=== PATIENT | male | born 1965 | race Caucasian/White ===

== ENCOUNTER → 2017-10-24 10:17 | Outpatient (POV) | payer MEDICAID, SELFPAY | PROVIDERS: PCP Nurse Practitioner Family; Visit Provider Otolaryngology | DX: Z00.00 Encounter for general adult medical examination without abnormal findings (principal) ==

== ENCOUNTER 2017-11-06 12:50 | Outpatient (RCR) | payer MEDICAID, SELFPAY | END 2017-11-06 16:00 | disposition home or self-care (01) | LOC: PT 12:50 | PROVIDERS: Family Provider Nurse Practitioner Family; PCP Nurse Practitioner Family; Visit Provider Nurse Practitioner Family | DX: R20.2 Paresthesia of skin (principal); M54.2 Cervicalgia ==

== ENCOUNTER 2019-12-27 14:34 | Emergency (ER) | payer MEDICAID, SELFPAY ==
--- NOTE | 2019-12-27 15:06 | ECG_ITS ---
APPROVED REPORT Exam: Resting ECG HR:72 bpm ECG Measurements Heart Rate 72 AXES MS 156 P 56 QRSd 110 QRS -4 QT 404 T 209 QTc 442 <Conclusion> Normal sinus rhythm ST & T wave abnormality, consider inferolateral ischemia Abnormal ECG Electronically signed by : Abner Mckeon, 12/27/2019 16:08:59
[2019-12-27 15:07] VITALS: BP 107/71; PULSE 77; RESP 17; TEMP 37; O2SAT 96; BMI 20.7
--- NOTE | 2019-12-27 15:10 | XR_ITS ---
PROCEDURE: XR CHEST 2V CLINICAL HISTORY: CHEST PAIN Chest pain, COPD, smoker COMPARISON: [facility] CT CHEST W/O CONTRAST from 07/08/2014 CXR CHEST(2 VIEWS-NOT PORTABLE) from 02/20/2015 FINDINGS: Normal heart size. There is a an RV pacemaker present from left subclavian approach. There is a 13 mm nodule in the left upper lobe which appears slightly more prominent from 02/20/2015. Chest CT may confirm as there is an old chest CT also available for comparison. Stable nodules present in the right midlung. No lobar consolidation or collapse. IMPRESSION: Bilateral pulmonary nodules. Left upper lobe nodule may be slightly more prominent but could be projectional in nature. CT may confirm Dictated by: Romain Flores MD 12/27/2019 16:16 Electronically signed by Romain Flores MD in [place] 12/27/2019 16:16
[2019-12-27 15:25] LABS: Basophils # 0.1 K/mm3 (0-0.2); Eosinophils # 0.4 K/mm3 (0.0-0.4); Lymphocytes # 2.6 K/mm3 (0.7-4.5); Mean Corpuscular HGB Conc 33.6 g/dL (31.8-35.4); Mean Corpuscular Hemoglobin 32.4 pg (27.0-31.2); Mean Corpuscular Volume 96.5 fl (80-94); Mean Platelet Volume 8.2 fl (7.4-10.4); Monocytes # 0.6 K/mm3 (0.1-1.0); Monocytes % 5.7 % (1.7-9.3); Neutrophils # 6.2 K/mm3 (1.8-7.8); Neutrophils % 63.2 % (37.0-80.0); Platelet Count 225 K/mm3 (142-424); Red Blood Count 5.91 M/mm3 (4.60-6.20); Red Cell Distribution Width 13.4 % (11.5-17.5); White Blood Count 9.9 K/mm3 (4.8-10.8)
[2019-12-27 15:31] LABS: Hemoglobin 19.2 g/dL (14.1-18.0)
[2019-12-27 15:33] LABS: Alanine Aminotransferase 45 U/L (12-78); Albumin Level 4.4 g/dl (3.5-5.0); Alkaline Phosphatase 75 U/L (38-126); Anion Gap 11.7 mEq/L (5-15); Aspartate Amino Transferase 40 U/L (17-59); Bilirubin,Direct 0.1 mg/dl (0.0-0.4); Bilirubin,Indirect 1.1 mg/dL (0.0-0.9); Bilirubin,Total 1.2 mg/dl (0.2-1.3); Blood Urea Nitrogen 7 mg/dl (9-20); Calcium 9.4 mg/dl (8.4-10.2); Carbon Dioxide 26 mmol/L (22.0-30.0); Chloride 99 mmol/L (98-107); Creatinine Clearance Estimated 75 mL/min (50-200); Estimated Glomerular Filt Rate 78 ml/min (>60); GFR (African American) 94 ML/MIN (>60); Glucose 101 mg/dl (74-100); Potassium 3.7 mmoL/L (3.5-5.1); Sodium 133 mmol/L (136-145); Total Protein,Serum 7.5 g/dl (6.3-8.2)
[2019-12-27 15:47] LABS: Troponin I < 0.01 ng/ml (0.00-0.034)
--- NOTE | 2019-12-27 17:02 | HMH.EDGENADL ---
ED Disposition Clinical Impression: Chest pain Qualifiers: Chest pain type: unspecified Qualified Code(s): R07.9 - Chest pain, unspecified Shingles Qualifiers: Herpes zoster complications: without complications Qualified Code(s): B02.9 - Zoster without complications Disposition: Home, Self-Care Condition on Discharge: Good Additional Instructions: After reviewing your labs and radiology we are discharging you home at this time. There is concern that your chest pain may be induced due to shingles. For this we have prescribed oral acyclovir. Please take as prescribed. Recommend that you follow-up with your primary care physician in the next 3 to 5 days for further evaluation. Should you worsen please return to the emergency department. Prescriptions: Acyclovir [Acyclovir 800mg tab] 800 mg PO 5XDAY 5 Days #25 tab Transmission Status: Pending to [id number] Referrals: Annel Carballo [Primary Care Provider] - - Critical Care Critical Care Time: No Attestation: On 12/27/19, the high probability of a clinically significant, sudden or life threatening deterioration of the following system(s) required my full and direct attention, intervention and personal management. The time I documented below is in addition to time spent performing reported procedures but includes the following listed in this critical care notation. Medical Decision Making - Abraham Inquiry Pt receiving controlled substance: No Abraham was queried for this patient: No Vital Signs: 12/27/19 15:07 Temperature 98.6 F Temperature Source Oral Pulse Rate [Right Radial] 77 Respiratory Rate 17 Blood Pressure [Right Arm] 107/71 L Blood Pressure Mean [Right Arm] 83 02 Sat by Pulse Oximetry 96 Oxygen Delivery Method Room Air - Lab Data Lab Results 12/27/19 15:15: WBC 9.9, RBC 5.91, Hgb 19.2 H*, Hct 57.0 H, MCV 96.5 H, MCH 32.4 H, MCHC 33.6, RDW 13.4, Plt Count 225, MPV 8.2, Neut % (Auto) 63.2, Lymph % (Auto) 26.0, [place] % (Auto) 5.7, Eos % (Auto) 4.0, Baso % (Auto) 1.0, Neut # (Auto) 6.2, Lymph # (Auto) 2.6, [place] # (Auto) 0.6, Eos # (Auto) 0.4, Baso # (Auto) 0.1 12/27/19 15:15: Sodium 133 L, Potassium 3.7, Chloride 99, Carbon Dioxide 26, Anion Gap 11.7, BUN 7 L, Creatinine 1.00, Estimated Creat Clear 75, Estimated GFR 78, Est GFR ( Amer) 94, Glucose 101 H, Calcium 9.4, Troponin I < 0.01 12/27/19 15:15: Total Bilirubin 1.2, Direct Bilirubin 0.1, Conjugated Bilirubin 0.0, Indirect Bilirubin 1.1 H, Unconjugated Bilirubin 1.0, AST 40, ALT 45, Alkaline Phosphatase 75, Total Protein 7.5, Albumin 4.4 12/27/19 17:00: Troponin I < 0.01 Result diagrams: 12/27/19 15:15 12/27/19 15:15 Orders (Tests/Meds): ED MEDICATIONS Discontinued Medications Generic Name Dose Route Start Last Admin Trade Name Freq PRN Reason Stop Dose Admin Aspirin 324 mg 12/27/19 15:10 12/27/19 15:18 Aspirin 81mg Chewable Tablet PO 12/27/19 15:11 324 mg ONCE ONE Administration Belladonna Alkaloids 60 ml 12/27/19 16:15 12/27/19 17:02 Gi Cocktail 60ml Udc PO 12/27/19 16:16 60 ml ONCE ONE Administration Famotidine 20 mg 12/27/19 16:15 12/27/19 17:02 Pepcid 20mg Tablet PO 12/27/19 16:16 20 mg ONCE ONE Administration ORDERS Category Date Time Status Troponin I Q3H Lab 12/27/19 21:15 Ordered Medical Decision Narrative: In summary patient is a 54-year-old male who presents the emergency department for evaluation of chest pain. Patient's vital signs within normal limits. No abnormalities noted on physical exam. Appropriate work-up initiated. Patient's EKG showed normal sinus rhythm no ST elevation, depression, or QT prolongation was noted. Chest x-ray showed no acute pulmonary or cardiac abnormalities. Patient had bilateral pulmonary nodules. RV pacemaker in place with no evidence of degradation, or injury to the leads. Initial labs are non actionable. No elevation in initial troponin. Repeat troponin returns an
[2019-12-27 17:38] LABS: Troponin I < 0.01 ng/ml (0.00-0.034)
[2019-12-27 18:13] VITALS: BP 129/87; PULSE 78; RESP 18; TEMP 36.9; O2SAT 98
== END 2019-12-27 18:28 | disposition home or self-care (01) ==
LOC: UTC 14:38 → ER 15:00
PROVIDERS: Emergency Provider Emergency Medicine; PCP Nurse Practitioner Family
DX: R07.9 Chest pain, unspecified (principal); B02.9 Zoster without complications; Z95.810 Presence of automatic (implantable) cardiac defibrillator; I25.2 Old myocardial infarction; E78.5 Hyperlipidemia, unspecified; Z86.79 Personal history of other diseases of the circulatory system; Z95.828 Presence of other vascular implants and grafts; Z90.89 Acquired absence of other organs; Z79.51 Long term (current) use of inhaled steroids; Z79.899 Other long term (current) drug therapy; Z88.6 Allergy status to analgesic agent; Z72.0 Tobacco use
CPT/HCPCS: 71046; 80048; 80076; 84484; 85025; 93005; 99283

== ENCOUNTER 2021-06-25 17:49 | Emergency (ER) | payer MEDICAID, SELFPAY ==
[2021-06-25 18:20] VITALS: BP 119/84; PULSE 83; RESP 20; TEMP 36.2; O2SAT 96; BMI 21.7
--- NOTE | 2021-06-25 19:00 | HMH.EDUTC ---
[facility] [place] Clinical Impression: COPD exacerbation Sinusitis Qualifiers: Sinusitis location: unspecified location Chronicity: acute Recurrence: non-recurrent Qualified Code(s): J01.90 - Acute sinusitis, unspecified Disposition: Home, Self-Care Condition on Discharge: Good Instructions: DI for Chronic Obstructive Pulmonary Disease, DI for Sinusitis, Preventing the Spread of Coronavirus Discharge Instructions Additional Instructions: Drink plenty of fluids. Take tylenol for pain or fever. Take the medications as directed. Follow up with your regular doctor. GO TO THE ER FOR ANY WORSENING SYMPTOMS Quarantine until you know the results of your covid-19 test. If it is positive, the health department should call you and give you further instructions about your length of Quarantine and other things. Notify your school or workplace of your results and follow their instructions regarding return to work/school. The cough medication (promethazine dm) will make you drowsy, so don't drive or operate heavy machinery after taking it. Prescriptions: Promethazine/Dextromethorphan [Promethazine-Dm Syrup] 5 ml PO Q6HP PRN #240 ml PRN Reason: Cough Transmission Status: Received by [facility] [employer]) Amoxicillin/Potassium Clav [Augmentin 875-125 Tablet] 1 tab PO Q12H 10 Days #20 tab Transmission Status: Received by [facility]) predniSONE [Deltasone 10mg tablet] 10 mg PO DAILY 9 Days #21 tab Transmission Status: Received by [facility]) guaiFENesin [Mucinex 600mg tablet] 1 - 2 tab PO BIDP PRN #30 tab PRN Reason: Congestion Transmission Status: Received by [facility]) Referrals: Annel Carballo [Primary Care Provider] - Time of Disposition: 19:16 Medical Decision Making - Medical Records Medical records reviewed: No: I reviewed the patient's medical records. - Abraham Inquiry Pt receiving controlled substance: No Vital Signs: 06/25/21 18:20 06/25/21 19:15 Temperature 97.1 F L 97.1 F L Temperature Source Oral Pulse Rate 83 Pulse Rate [Right Brachial] 83 Respiratory Rate 20 20 Blood Pressure 119/84 Blood Pressure [Right Arm] 119/84 Blood Pressure Mean [Right Arm] 95 Blood Pressure Source [Right Arm] Automatic Cuff Blood Pressure Position [Right Arm] Sitting 02 Sat by Pulse Oximetry 96 Oxygen Delivery Method Room Air - Lab Data Lab results reviewed: Yes: I reviewed the patient's lab results. Orders (Tests/Meds): ED MEDICATIONS Discontinued Medications Generic Name Dose Route Start Last Admin Trade Name Nella PRN Reason Stop Dose Admin Ceftriaxone Sodium 1 gm 06/25/21 19:06 06/25/21 19:14 Ceftriaxone 1gm Vial IM 06/25/21 19:07 1 gm ONCE ONE Administration Lidocaine HCl 0 ml 06/25/21 19:06 06/25/21 19:14 Lidocaine 1% 5ml Pf Vial IM 06/25/21 19:07 2.1 ml ONCE ONE Administration [facility] [place] - General Stated complaint: Sore throat,Cough Congestion Time Seen by Provider: 06/25/21 19:00 Mode of Arrival: Ambulatory Source of Information: Patient Limitations: No Limitations Description of Symptoms (Recalled from Triage Doc. by RN): PATIENT C/O HEAD CONGESTION AND BODY ACHES X 2 DAYS HEENT Symptoms (Recalled from RN notes): Yes Resp Symptoms (Recalled from RN notes): No Skin Symptoms (Recalled from RN notes): No MS Symptoms (Recalled from RN notes): No Functional Status (Recalled from RN notes): WNL - History of Present Illness Provider Complaint: He states that for the past 3 days he has had progressively worsening chest congestion, right sided sinus congestion and right ear pain. He has been fully vaccinated against covid-19 and he has had a booster shot also. He denies any fever or chills. He has history of cardiac issues. He has had an TX and he has an implanted AICD. He denies any chest pain. He does have some shortness of breath. He has a history of copd. He is not out of any of his inhalers that he uses. - Related Data Home
[2021-06-25 19:15] VITALS: BP 119/84; PULSE 83; RESP 20; TEMP 36.2; O2SAT 96
== END 2021-06-25 19:43 | disposition home or self-care (01) ==
PROVIDERS: Emergency Provider Nurse Practitioner Family; PCP Nurse Practitioner Family
DX: J44.1 Chronic obstructive pulmonary disease with (acute) exacerbation (principal); J32.9 Chronic sinusitis, unspecified; F17.210 Nicotine dependence, cigarettes, uncomplicated; I50.9 Heart failure, unspecified; I25.10 Atherosclerotic heart disease of native coronary artery without angina pectoris; E78.5 Hyperlipidemia, unspecified
CPT/HCPCS: 96372; 99202; C9803; G0463; U0003; U0005

== ENCOUNTER 2021-12-01 16:13 | Emergency (ER) | payer MEDICAID, SELFPAY ==
--- NOTE | 2021-12-01 17:14 | XR_ITS ---
PROCEDURE INFORMATION: Exam: XR Left Knee Exam date and time: 12/01/2021 5:14 PM Age: 56 years old Clinical indication: Pain; Knee; Left TECHNIQUE: Imaging protocol: XR Left knee. Views: 3 views. COMPARISON: CR [id number] KNEE-3 VIEWS-LT 06/21/2017 1:40 PM FINDINGS: Bones/joints: Normal. Soft tissues: Atherosclerotic vascular calcifications. IMPRESSION: No acute findings.
[2021-12-01 17:18] VITALS: BP 118/77; PULSE 83; RESP 18; TEMP 36.6; O2SAT 98; BMI 20.9
--- NOTE | 2021-12-01 17:47 | HMH.EDUTC ---
[facility] [place] Clinical Impression: Pseudogout Knee pain Qualifiers: Chronicity: unspecified Laterality: left Qualified Code(s): M25.562 - Pain in left knee Disposition: Home, Self-Care Condition on Discharge: Good Instructions: DI for Pseudogout, DI for Knee Pain Additional Instructions: Over the counter Tylenol may help with pain Start oral Steriods tomorrow Return if needed Straight to ER if any life threatening symptoms Prescriptions: methylPREDNISolone [Medrol 4mg tab] 4 mg PO DIRECTED #21 tab Transmission Status: Pending to [facility] Referrals: Annel Carballo [Primary Care Provider] - As needed Time of Disposition: 18:47 Medical Decision Making - Abraham Inquiry Pt receiving controlled substance: No Abraham was queried for this patient: No Vital Signs: 12/01/21 17:18 Temperature 98 F Temperature Source Oral Pulse Rate [Left] 83 Respiratory Rate 18 Blood Pressure [Right Arm] 118/77 Blood Pressure Mean [Right Arm] 90 02 Sat by Pulse Oximetry 98 - Lab Data Lab Results 12/01/21 17:58: Uric Acid 6.7 Orders (Tests/Meds): ED MEDICATIONS Discontinued Medications Generic Name Dose Route Start Last Admin Trade Name Freq PRN Reason Stop Dose Admin Methylprednisolone Sodium Succinate 125 mg 12/01/21 18:30 12/01/21 18:34 Methylprednisolone Sod Succ 125mg Vial IM 12/01/21 18:31 125 mg ONCE ONE Administration - Radiology Data #1 Image(s): Knee Image Reviewed: Yes I have reviewed radiologist's interpretation IMPRESSION: No acute findings. Medical Decision Narrative: Patient states that he has taken solumedrol in the past Medication discussed with pharmacy patient allergic to NSAIDS will treat with Medrol and have patient follow up if no improvement [facility] [place] HPI - General Stated complaint: L leg pain, knee to foot Time Seen by Provider: 12/01/21 17:48 Mode of Arrival: Ambulatory Source of Information: Patient Limitations: No Limitations Description of Symptoms (Recalled from Triage Doc. by RN): PT STATES HE WAS SITTING IN A CHAIR WHEN SUDDENLY HE HAD A SHARP PAIN SHOOTING FROM HIS KNEE DOWN TO HIS FOOT. HEENT Symptoms (Recalled from RN notes): No Resp Symptoms (Recalled from RN notes): No Skin Symptoms (Recalled from RN notes): No MS Symptoms (Recalled from RN notes): Yes Functional Status (Recalled from RN notes): WNL - History of Present Illness Provider Complaint: Patient states that he was sitting in the chair earlier when he started having pain in his left knee denies known injury States that pain hurts worse with movement - Related Data Home Medications Medication Instructions Recorded Confirmed amitriptyline 10 mg tablet 30 mg PO DAILY 01/03/19 06/25/21 fluoxetine 40 mg capsule 40 mg PO DAILY 01/03/19 06/25/21 losartan 25 mg tablet 25 mg PO DAILY 01/03/19 06/25/21 metoprolol succinate 50 mg capsule 50 mg PO DAILY 01/03/19 06/25/21 sprinkle, ext. release 24 hr nitroglycerin 0.4 mg sublingual 0.4 mg SUBLINGUAL Q5-15M PRN 01/03/19 06/25/21 tablet spironolactone 25 mg tablet 25 mg PO DAILY 01/03/19 06/25/21 Previous Rx's Medication Instructions Recorded Amoxicillin/Potassium Clav 1 tab PO Q12H 10 Days #20 tab 06/25/21 [Augmentin 875-125 Tablet] Promethazine/Dextromethorphan 5 ml PO Q6HP PRN #240 ml 06/25/21 [Promethazine-Dm Syrup] guaiFENesin [Mucinex 600mg tablet] 1 - 2 tab PO BIDP PRN #30 tab 06/25/21 predniSONE [Deltasone 10mg tablet] 10 mg PO DAILY 9 Days #21 tab 06/25/21 methylPREDNISolone [Medrol 4mg 4 mg PO DIRECTED #21 tab 12/01/21 tab] Allergies Allergy/AdvReac Type Severity Reaction Status Date / Time NSAIDS (Non-Steroidal Allergy Verified 12/27/19 15:10 Anti-Inflamma sertraline Allergy Verified 06/25/21 18:56 - Worker's Comp Is this a Worker's Comp case?: No [facility] History - Hepatitis A Screen Drug use history?: No High risk sexual behaviors?: No History of sexually transm
[2021-12-01 18:18] LABS: Uric Acid 6.7 mg/dl (3.5-8.5)
[2021-12-01 18:52] VITALS: BP 118/77; PULSE 83; RESP 18; TEMP 36.6
== END 2021-12-01 18:53 | disposition home or self-care (01) ==
PROVIDERS: Emergency Provider Nurse Practitioner; PCP Nurse Practitioner Family
DX: M11.20 Other chondrocalcinosis, unspecified site (principal)
CPT/HCPCS: 73562; 84550; 96372; 99213; G0463

== ENCOUNTER 2021-12-09 09:00 | Outpatient (RCR) | payer MEDICAID, SELFPAY | END 2022-01-04 09:21 | disposition home or self-care (01) | LOC: OT 09:00 | PROVIDERS: PCP Nurse Practitioner Family; Visit Provider Family Medicine | DX: M67.811 Other specified disorders of synovium, right shoulder (principal) | CPT/HCPCS: 97010; 97014; 97110; 97140; 97165; 97530; G0283 ==

== ENCOUNTER 2023-06-07 13:28 | Emergency (ER) | payer MEDICAID, SELFPAY ==
--- NOTE | 2023-06-07 13:32 | XR_ITS ---
FINAL REPORT CLINICAL HISTORY: rolled right foot getting out of bed COMPARISON: None FINDINGS: RIGHT FOOT 3 views of the right foot were obtained. There is no acute fracture or dislocation. There are marked hypertrophic changes of osteoarthritis at the 1st MTP joint. There is prominent osteophyte at the base of the 1st proximal phalanx. There is a small plantar spur. Soft tissues are unremarkable. IMPRESSION: Degenerative changes without acute bony abnormality. Reviewed, Interpreted and Dictated by Ezequiel Root MD Transcribed by Tonja Aquino Authenticated and [facility]
[2023-06-07 13:40] VITALS: BP 109/80; PULSE 70; RESP 18; TEMP 36.8; O2SAT 99; BMI 21.1
--- NOTE | 2023-06-07 14:07 | EXP.UTC ---
Discharge Plan Disposition Patient Disposition: Home, Self-Care Condition: Good Prescriptions Prescriptions: No Action amitriptyline 10 mg tablet 30 mg PO DAILY losartan 25 mg tablet 25 mg PO DAILY spironolactone 25 mg tablet 25 mg PO DAILY fluoxetine 40 mg capsule 40 mg PO DAILY nitroglycerin 0.4 mg tablet, sublingual 0.4 mg SUBLINGUAL Q5-15M PRN (Reason: .) metoprolol succinate 50 mg capsule,sprinkle,ER 24hr 50 mg PO DAILY prednisone 10 MG tablet 10 mg PO DAILY 9 Days Qty: 21 0RF Rx Instructions: Take 40 mg for 3 days, then take 20 mg for 3 days, then take 10 mg for 3 days, then stop. atorvastatin 80 mg tablet 80 mg PO DAILY Patient Comments: TAKE 1 TABLET 1 TIME EACH DAY AT BEDTIME tamsulosin 0.4 mg capsule 0.4 mg PO DAILY Patient Comments: TAKE 1 CAPSULE 1 TIME EACH DAY, 1/2 HOUR AFTER THE SAME MEAL EACH DAY esomeprazole magnesium 40 mg capsule,delayed release(DR/EC) 40 mg PO DAILY Patient Comments: TAKE 1 CAPSULE 1 TIME EACH DAY Referrals Follow up/Referrals: Osbaldo Ordonez DPM [Physician] - See instructions Annel Carballo [Primary Care Provider] - See instructions Activity Restrictions/Add. Instructions Additional Instructions/Restrictions: Further care and appointment as discussed by Dr Ordonez *No weight bearing use crutches to get around *RICE, Rest the extremity, Ice 15-20 minutes 3-4 times daily, Compress- wear the ant wrap as discussed as much as possible to help reduce swelling and pain, Elevate the extremity when at rest *Atn wrap/Orthoglass is for support and help control swelling, Be sure that is not to tight but not to loose either *Elevate when resting? *Ibuprofen 600-800mg every 6-8 hours as needed for pain an inflammation. If need something more can take Tylenol in between doses of Ibuprofen to help Immediately follow up with your family doctor for new or worsening of symptoms, or no noticeable improvement over the next 3-[address] Ordonez as scheduled Clinical Impressions Clinical Impression: Arnett fracture Qualifiers: Encounter type: initial encounter Fracture type: closed Laterality: right Qualified Code(s): S99.191A - Other physeal fracture of right metatarsal, initial encounter for closed fracture Instructions Patient Instructions: How to Use Crutches, How To Perform RICE (Rest, Ice, Compress, Elevate) Discharge ED Provider: Marge Moss [facility] [place] HPI General Stated complaint: [id number] right foot home injury Time Seen by Provider: 06/07/23 13:55 History of Present Illness Provider Complaint: Patient states that he was in the bed this morning when someone opened his apartment door and yelled maintenance and he jumped up and he rolled his right foot and felt a pop on he top of his right foot below his little toe States that he has been having swelling and bruising and hurts when he walks on it State that he has crutches at home but couldnt get to them so he used a cane until he can get back in his apartment to get his crutches Related Data Home Medications Medication Instructions Recorded Confirmed amitriptyline 10 mg tablet 30 mg PO DAILY . 01/03/19 06/07/23 fluoxetine 40 mg capsule 40 mg PO DAILY . 01/03/19 06/07/23 losartan 25 mg tablet 25 mg PO DAILY Hypertension 01/03/19 06/07/23 metoprolol succinate 50 mg capsule 50 mg PO DAILY Hypertension 01/03/19 06/07/23 sprinkle, ext. release 24 hr nitroglycerin 0.4 mg sublingual 0.4 mg sublingual Q5-15M PRN . 01/03/19 06/25/21 tablet spironolactone 25 mg tablet 25 mg PO DAILY . 01/03/19 06/07/23 atorvastatin 80 mg tablet 80 mg PO DAILY High Cholesterol 06/07/23 06/07/23 esomeprazole magnesium 40 mg 40 mg PO DAILY gerd 06/07/23 06/07/23 capsule,delayed release tamsulosin 0.4 mg capsule 0.4 mg PO DAILY prostate 06/07/23 06/07/23 Previous Rx's Medication Instructions Recorded prednisone 10 mg tablet 10 m
--- NOTE | 2023-06-07 15:27 | XR_ITS ---
FINAL REPORT TECHNIQUE: Chest PA & Lateral CLINICAL HISTORY: pre op for surgery COMPARISON: 12/27/2019 FINDINGS: 2 views of the chest were performed. Left-sided pacer is present. The heart size is normal. The mediastinum is within normal limits. There are calcified granulomas in the left upper lobe in the periphery of the left lung. There is no acute cardiopulmonary process. There are no pleural effusions. There is no pneumothorax. The bony thorax appears intact. IMPRESSION: No acute cardiopulmonary process. Chronic changes in both lungs. Reviewed, Interpreted and Dictated by Ezequiel Root MD Transcribed by Tonja Aquino Authenticated and [facility]
--- NOTE | 2023-06-07 15:39 | ECG_ITS ---
APPROVED REPORT Exam: Resting ECG HR:64 bpm ECG Measurements Heart Rate 64 AXES MS 166 P 49 QRSd 121 QRS 16 QT 401 T 70 QTc 411 Conclusion SINUS RHYTHM MODERATE INTRAVENTRICULAR CONDUCTION DELAY [110+ ms QRS DURATION] NONSPECIFIC ST & T-WAVE ABNORMALITY BORDERLINE ECG UNCONFIRMED REPORT Electronically signed by : Abraham Washington MD 06/08/2023 07:49:51
[2023-06-07 15:52] LABS: Basophils # 0.1 K/mm3 (0-0.2); Basophils % 1.1 % (0.1-2.0); Eosinophils # 0.4 K/mm3 (0.0-0.4); Eosinophils % 4.2 % (0.1-12.0); Lymphocytes # 2.3 K/mm3 (0.7-4.5); Lymphocytes % 27.4 % (10-50); Mean Corpuscular HGB Conc 32.1 g/dL (31.8-35.4); Mean Corpuscular Hemoglobin 30.8 pg (27.0-31.2); Mean Corpuscular Volume 95.9 fl (80-94); Mean Platelet Volume 8.5 fl (7.4-10.4); Monocytes # 0.6 K/mm3 (0.1-1.0); Monocytes % 6.7 % (1.7-9.3); Neutrophils # 5.2 K/mm3 (1.8-7.8); Neutrophils % 60.5 % (37.0-80.0); Platelet Count 211 K/mm3 (142-424); Red Blood Count 6.48 M/mm3 (4.60-6.20); Red Cell Distribution Width 13.7 % (11.5-17.5); White Blood Count 8.5 K/mm3 (4.8-10.8)
[2023-06-07 15:55] LABS: Hematocrit 62.1 % (42.0-52.0)
[2023-06-07 15:56] LABS: Hemoglobin 19.9 g/dL (14.1-18.0)
--- NOTE | 2023-06-07 16:06 | PC.NURSE ---
Spoke with Dr. Ordonez about the critical lab result.
[2023-06-07 16:28] LABS: Chloride 99 mmol/L (98-107); Potassium 4.9 mmoL/L (3.5-5.1); Sodium 138 mmol/L (136-145)
[2023-06-07 16:30] LABS: Blood Urea Nitrogen 13 mg/dl (9-20)
[2023-06-07 16:31] LABS: Alanine Aminotransferase 27 U/L (12-78); Albumin Level 4.3 g/dl (3.5-5.0); Albumin/Globulin Ratio 1.3 (1.1-1.8); Alkaline Phosphatase 77 U/L (38-126); Anion Gap 14.9 mEq/L (5-15); Aspartate Amino Transferase 34 U/L (17-59); Bilirubin,Total 1.2 mg/dl (0.2-1.3); Calcium 9.2 mg/dl (8.4-10.2); Carbon Dioxide 29 mmol/L (22.0-30.0); Creatinine Clearance Estimated 72 mL/min (50-200); Estimated Glomerular Filt Rate 69 ml/min (>60); GFR (African American) 83 ML/MIN (>60); Globulin 3.2 g/dL (1.3-3.2); Glucose 98 mg/dl (74-100); Total Protein,Serum 7.5 g/dl (6.3-8.2)
[2023-06-07 16:48] VITALS: BP 109/80; PULSE 70; RESP 19; TEMP 36.8; O2SAT 99
== END 2023-06-07 16:30 | disposition home or self-care (01) ==
PROVIDERS: Emergency Provider Nurse Practitioner; PCP Nurse Practitioner Family
DX: S99.191A Other physeal fracture of right metatarsal, initial encounter for closed fracture (principal); F17.210 Nicotine dependence, cigarettes, uncomplicated; X50.1XXA Overexertion from prolonged static or awkward postures, initial encounter
CPT/HCPCS: 71046; 73630; 80053; 85025; 93005; 99212; 99214; G0463

== ENCOUNTER → 2023-06-28 15:13 | Outpatient (CLI) | payer MEDICAID, SELFPAY ==
--- NOTE | 2023-06-28 15:13 | XR_ITS ---
FINAL REPORT CLINICAL HISTORY: 5th met fracture COMPARISON: 06/07/2023 FINDINGS: RIGHT FOOT 3 views of the right foot were obtained. Overlying cast obscures detail. There is an oblique fracture of the fifth metatarsal. Severe degenerative changes are seen of the first MTP. Visualized joint spaces are normally aligned. Soft tissues are unremarkable. IMPRESSION: Oblique fracture of the fifth metatarsal. Reviewed, Interpreted and Dictated by Carmine Madera III, MD Transcribed by Catarina Bae Authenticated and [facility]
== END ==
PROVIDERS: Visit Provider Podiatrist
DX: S92.351A Displaced fracture of fifth metatarsal bone, right foot, initial encounter for closed fracture (principal); Y99.9 Unspecified external cause status
CPT/HCPCS: 73630

== ENCOUNTER → 2023-08-02 15:15 | Outpatient (CLI) | payer MEDICAID, SELFPAY ==
--- NOTE | 2023-08-02 15:20 | XR_ITS ---
FINAL REPORT CLINICAL HISTORY: Right Foot Fracture COMPARISON: 06/28/2023 FINDINGS: RIGHT FOOT 3 views of the right foot were obtained. Since the prior exam of June 28 the splint has been removed from the patient's foot. The oblique mildly displaced fracture of the fifth metatarsal is once again identified, with a small amount of bridging callus present. The severe degenerative change in the first metatarsal phalangeal joint remains present and unchanged. No new fractures or other bony abnormality are identified. Visualized joint spaces are normally aligned. Soft tissues are unremarkable. IMPRESSION: The oblique mildly displaced fracture of the fifth metatarsal is once again identified with a small amount of bridging callus present. Severe degenerative change of the first metatarsal phalangeal joint once again identified. Reviewed, Interpreted and Dictated by Ezequiel Root MD Transcribed by Sherri Santos Authenticated and [facility]
== END ==
PROVIDERS: PCP Nurse Practitioner Family; Visit Provider Podiatrist
DX: S92.901A Unspecified fracture of right foot, initial encounter for closed fracture (principal)
CPT/HCPCS: 73630

== ENCOUNTER 2023-10-19 09:49 | Outpatient (CLI) | payer MEDICAID, SELFPAY ==
--- NOTE | 2023-10-19 10:43 | PC.NURSE ---
1008- phlebotomy performed per MD order for hgb >18. pt most recent hgb was 20.1. 450ml whole blood was drained off by Shanika Norman from lab, via 18g IV in right ac inserted by this RN. pre-phlebotomy BP was 103/64, post BP was 100/58. phlebotomy completed at 1030. pt D/C home at 1040. pt tolerated well and did not c/o any dizziness or lightheadedness.
== END 2023-10-19 10:42 | disposition home or self-care (01) ==
LOC: INF 09:50
PROVIDERS: PCP Nurse Practitioner Family; Visit Provider Nurse Practitioner Family
DX: D75.1 Secondary polycythemia (principal)
CPT/HCPCS: 99195

== ENCOUNTER 2024-05-13 09:56 | Outpatient (CLI) | payer MEDICAID, SELFPAY ==
[2024-05-13 10:25] VITALS: BP 96/60; PULSE 58; RESP 18; TEMP 36.6; O2SAT 96
[2024-05-13 10:50] VITALS: BP 95/54; PULSE 63; RESP 16; O2SAT 95
[2024-05-13 11:05] VITALS: BP 103/67; PULSE 62; RESP 18; TEMP 36.6; O2SAT 96
[2024-05-13 11:15] VITALS: BP 122/58; PULSE 64; RESP 16; O2SAT 95
--- NOTE | 2024-05-13 12:02 | PC.NURSE ---
500 ml therapeutic phlebotomy per MD order/ patient tolerated well
== END 2024-05-13 11:15 | disposition home or self-care (01) ==
LOC: INF 09:57
PROVIDERS: PCP Nurse Practitioner Family; Visit Provider Nurse Practitioner Family
DX: D75.1 Secondary polycythemia (principal)
CPT/HCPCS: 99195

== ENCOUNTER 2024-06-11 12:51 | Day surgery (SDC) | payer MEDICAID, SELFPAY ==
[2024-06-07 13:51] VITALS: BMI 20.3
[2024-06-11] MEDS: LACTATED RINGERS 1000ML 1,000 ML 25 ML IV (13:03)
[2024-06-11 13:11] VITALS: BP 106/71; PULSE 72; RESP 18; TEMP 36.8; O2SAT 93
[2024-06-11 13:18] VITALS: O2SAT 98
[2024-06-11 13:51] VITALS: BP 94/52; PULSE 63; RESP 16; TEMP 36.1; O2SAT 97
--- NOTE | 2024-06-11 13:51 | HMH.SCOPE ---
Procedure: Date: 06/11/24 Patient Date of :: 1965 Procedure Performed:: Colonoscopy with polypectomy Indications:: Screening Performing Provider:: Terry Campos MD Referring Provider:: . Sedation:: Monitored anesthesia care Procedure:: After informed consent was obtained the patient was taken to the endoscopy suite. Sedation ensued after the patient was transferred to the left lateral decubitus position. Pulse, blood pressure, and oxygen saturation were monitored throughout the procedure. Digital rectal exam revealed no significant abnormality. The colonoscope was placed in position. The entire colon was evaluated. The colonoscope was carefully removed and the patient was transferred to recovery in stable condition. Please see findings and specimens below for detail. Findings:: Bowel preparation relatively fair Somewhat enlarged prostate Mild/developing sigmoid diverticulosis Profound spasticity/lack of relaxation Moderate tortuosity Multiple complex polyps Specimens:: Lobulated complex distal right colon polyp (cold snare) Sessile lobulated complex hepatic flexure polyp (cold snare) Adjacent lobulated sessile complex polyps at 43 cm (cold snare) Complex lobulated polyp at 20 cm (cold snare) Recommendations:: Timing of repeat colonoscopy is pending pathology but likely be between 1-2 years secondary to size/nature/number of polyps, profound spasticity/lack of relaxation, and moderate tortuosity. Complications:: No immediate Estimated blood obtained (mL): 1 Colonoscopy Component Colonoscopy Component Was a colonoscopy performed during today's procedure?: Yes Recommended follow up colonoscopy of at least 10 years?: No If no, follow up colonoscopy recommended in ___ years?: (See above) Reason for not recommending >/= 10 yr follow-up interval?: (See above)
--- NOTE | 2024-06-11 13:55 | P.PNANES_ITS ---
[facility] Disclaimer: The information contained in this section may have been updated after the patient was seen, as this information can be updated by other users. Medical History Abnormal electrocardiogram [ECG] [EKG] Arrhythmia svt Congestive heart failure COPD (chronic obstructive pulmonary disease) Coronary artery disease Encounter for pre-operative cardiovascular clearance Hyperlipidemia Hypertension Ischemic cardiomyopathy Surgical History AICD (automatic cardioverter/defibrillator) present Hx of heart artery stent Family History Other Family history of stroke Social History (Updated 06/11/24 @ 13:10 by Tonja Carrizales RN) Smoking Status: Current every day smoker tobacco type: cigarettes packs per day: 1 alcohol intake: never substance use type: denies use current occupational status: disabled Travel in the last 8 weeks: None [facility] Anesthesia Checklist Patient Identification Patient Identification: Arm Band Structural Data Admitted From: Home Planned Operative Procedure/s: Colonoscopy Consent for Planned Operative Procedure(s) Verified: Yes Verified Documents: Surgical Consent and History and Physical NPO Status Verified Time NPO: 00:00 Additional verifications Anesthesia Reactions: No Airway Assessment Mallampati Score:: Class II C-Spine Mobility Assessed: Yes TMJ Mobility Assessed: Yes Neurological Assessment Level of Consciousness: Awake, Alert and Appropriate Anesthesia Plan Anesthesia Risk discussed: Yes Anesthesia Plan: Verified ASA Class: III Anesthesia Type: MAC
[2024-06-11 14:01] VITALS: BP 91/57; PULSE 60; RESP 16; O2SAT 99
[2024-06-11 14:11] VITALS: BP 96/68; PULSE 68; RESP 18; O2SAT 98
[2024-06-11 14:17] VITALS: BP 100/70; PULSE 63; RESP 18; O2SAT 100
== END 2024-06-11 14:17 | disposition home or self-care (01) ==
PROVIDERS: PCP Nurse Practitioner Family; Visit Provider Surgery
PROC: 0DJD8ZZ Inspection of Lower Intestinal Tract, Via Natural or Artificial Opening Endoscopic (ICD-10-PCS; CPT 45385; principal; 2024-06-11 13:30)
DX: Z12.11 Encounter for screening for malignant neoplasm of colon (principal); K57.30 Diverticulosis of large intestine without perforation or abscess without bleeding; K63.5 Polyp of colon; D12.3 Benign neoplasm of transverse colon; D12.5 Benign neoplasm of sigmoid colon
CPT/HCPCS: 45385; J7120

== ENCOUNTER 2024-06-14 06:52 | Outpatient (CLI) | payer MEDICAID, SELFPAY ==
--- NOTE | 2024-06-14 07:01 | CT_ITS ---
FINAL REPORT CLINICAL HISTORY: SCREENING CURRENT SMOKER 1/2PPD X52 YEARS FINDINGS: CTDI vol (mGy): 2.90 DLP: 109.[address] images of the chest were obtained using the low-dose protocol for screening. There is no evidence of mediastinal or hilar mass or adenopathy. No axillary mass or adenopathy is identified. On the lung window images, no pulmonary mass or suspicious nodule is identified. There is emphysema and old calcified granulomatous disease. IMPRESSION: Lung RADS category 1 . Recommend 12 month followup low-dose CT for further evaluation. Reviewed, Interpreted and Dictated by Chad Eckert MD Transcribed by Catarina Bae Authenticated and [facility]
== END 2024-06-14 23:59 | disposition home or self-care (01) ==
LOC: RAD 06:54
PROVIDERS: PCP Nurse Practitioner Family; Visit Provider Nurse Practitioner Family
DX: F17.210 Nicotine dependence, cigarettes, uncomplicated (principal); Z12.2 Encounter for screening for malignant neoplasm of respiratory organs
CPT/HCPCS: 71271